=== PATIENT | female | born 1985 | race African-American/Black ===

== ENCOUNTER 2016-11-04 18:42 | Emergency (ER) | payer OTHER ==
[~2016-11-04] VITALS: Ht 167.6 cm; Wt 80.7 kg
[~2016-11-04 18:42] MED LIST: CIPROFLOXACIN500 M1 PO; COLACE 100 MG100 MG PO; HYDROCODONE-AP1 EAC6 PO; IBUPROFEN 600600 M1 PO; NOHOMEMEDICATIONS; NORCO 5-325 TA1 EACH PO; PYRIDIUM200 MG PO; SENOKOT-S1 TA1 PO
[2016-11-04] MEDS ORDERED: AMOXICILLIN875 MG PO (19:01)
[2016-11-04] MEDS ORDERED: NOHOMEMEDICATIONS (19:16)
== END 2016-11-04 19:30 | disposition home or self-care (01) ==
LOC: ER 18:42
DX: J06.9 Acute upper respiratory infection, unspecified (principal); I10 Essential (primary) hypertension; Z90.49 Acquired absence of other specified parts of digestive tract